=== PATIENT | male | born 1980 | race Caucasian/White ===

== ENCOUNTER 2023-11-18 00:44 | Emergency (ER) | payer MEDICAID ==
[~2023-11-18] VITALS: Ht 182.9 cm; Wt 62.7 kg
[~2023-11-18 00:44] MED LIST: NO HOME MEDS
[2023-11-18] MEDS ORDERED: DOXY-460 PO (02:05)
[2023-11-18] MEDS ORDERED: ONDA-245 PO (02:05)
[2023-11-18] MEDS ORDERED: CEPH-585 PO (02:05)
[2023-11-18] MEDS: ondansetron 4mg rapidly disintigrating tab PO ONE (02:20)
[2023-11-18] MEDS: TETanus/Pertussis (Acell)/Diphther VAC/PF (Tdap-Adult) 0.5ml syringe IMVAC ONE (02:21)
[2023-11-18] MEDS: DOXYCYCLINE 100MG CAPSULE PO STA (02:21)
[2023-11-18] MEDS: ceFAZolin 1gm IM kit IM ONE (02:22)
[2023-11-18 02:41] VITALS: BP 100/64; PULSE 82; RESP 16; TEMP 97.8; O2SAT 98
[2023-11-18] MEDS: ibuprofen tablet 400 MG TABLET PO ONE (02:41)
== END 2023-11-18 02:43 | disposition home or self-care (01) ==
LOC: ER 00:45
DX: L03.116 Cellulitis of left lower limb (principal); Z79.899 Other long term (current) drug therapy
CPT/HCPCS: 90471; 90715; 96372; 99284; J0690